=== PATIENT | female | born 1985 | race Caucasian/White ===

== ENCOUNTER → 2019-12-06 | Outpatient (CLI) | payer BC | LOC: COL.RAD 10:18 | DX: E03.9 Hypothyroidism, unspecified (principal); R43.0 Anosmia; R43.1 Parosmia ==

== ENCOUNTER 2021-06-29 09:03 | Outpatient (RCR) | payer BC | END 2021-07-20 | disposition home or self-care (01) | LOC: WSST | DX: R51.9 Headache, unspecified (principal); U09.9 Post COVID-19 condition, unspecified; R41.89 Other symptoms and signs involving cognitive functions and awareness ==

== ENCOUNTER → 2021-08-20 | Outpatient (RCR) | payer BC | END | disposition home or self-care (01) | LOC: WSST | DX: R41.841 Cognitive communication deficit (principal); R51.9 Headache, unspecified; U09.9 Post COVID-19 condition, unspecified ==

== ENCOUNTER 2021-09-10 10:30 | Outpatient (RCR) | payer BC | END 2021-09-17 | disposition home or self-care (01) | LOC: WSST | DX: R41.89 Other symptoms and signs involving cognitive functions and awareness (principal); R51.9 Headache, unspecified; U09.9 Post COVID-19 condition, unspecified; G89.29 Other chronic pain ==